=== PATIENT | male | born 1940 | race Caucasian/White ===

== ENCOUNTER 2019-07-05 10:40 | Outpatient (CLI) | payer MEDICARE ==
[2019-07-05 11:04] LABS: BASOPHILS # (AUTO) 0.1 10^3/uL (0.0-0.1); BASOPHILS % (AUTO) 0.7 %; EOSINOPHILS # (AUTO) 0.4 10^3/uL (0.0-0.7); EOSINOPHILS % (AUTO) 5.2 %; HGB - HEMOGLOBIN 15.6 g/dL (14.0-18.0); LYMPHOCYTES # (AUTO) 1.3 10^3/uL (1.5-3.5); LYMPHOCYTES % (AUTO) 15.9 %; MEAN CORPUSCULAR HEMOGLOBIN 31.5 pg (27.0-31.0); MEAN CORPUSCULAR HGB CONC 33.8 g/dL (32.0-36.0); MEAN CORPUSCULAR VOLUME 93.3 fL (80.0-94.0); MEAN PLATELET VOLUME 9.7 fL (7.4-11.4); MONOCYTES # (AUTO) 0.7 10^3/uL (0.0-1.0); NEUTROPHILS # (AUTO) 5.9 10^3/uL (1.5-6.6); NEUTROPHILS % (AUTO) 69.8 %; PLT - PLATELET COUNT 224 10^3/uL (130-450); RED BLOOD COUNT 4.95 10^6/uL (4.70-6.10); RED CELL DISTRIBUTION WIDTH 14.2 % (12.0-15.0); WHITE BLOOD COUNT 8.5 x10^3/uL (4.8-10.8)
[2019-07-05 11:22] LABS: ALBUMIN 4.5 g/dL (3.2-5.5); ALBUMIN/GLOBULIN RATIO 1.3 (1.0-2.2); ALKALINE PHOSPHATASE 66 IU/L (42-121); ALT ALANINE AMINOTRANSFERASE 26 IU/L (10-60); AST ASPARTATE AMINOTRANSFERASE 19 IU/L (10-42); BILIRUBIN,TOTAL 0.9 mg/dL (0.2-1.0); BUN - BLOOD UREA NITROGEN 14 mg/dL (6-20); CALCIUM 8.8 mg/dL (8.5-10.3); CARBON DIOXIDE - CO2 25 mmol/L (21-32); CHLORIDE 100 mmol/L (101-111); CHOL/HDL RATIO 4.6 (<5.0); CHOLESTEROL 160 mg/dL; CREATININE 0.7 mg/dL (0.6-1.2); GLUCOSE 117 mg/dL (70-100); HDL CHOLESTEROL 35 mg/dL; LDL CHOLESTEROL,CALCULATED 69 mg/dL; SODIUM 134 mmol/L (135-145); VLDL CHOLESTEROL 56 mg/dL
[2019-07-05 11:51] LABS: DIFFERENTIAL COMMENT MANUAL=AUTO DIFF; PLATELET ESTIMATE, MANUAL NORMAL (130-450,000) (NORMAL); PLATELET MORPHOLOGY NORMAL APPEARANCE (NORMAL); RBC MORPHOLOGY (MULTIPLE) NORMAL APPEARANCE (NORMAL)
[2019-07-05 12:01] LABS: PSA FREE 1.38 ng/mL (0.16-2.81); PSA TOTAL 4.63 ng/mL (0.000-2.000)
== END 2019-07-05 10:41 | disposition home or self-care (01) ==
LOC: LAB 10:40
PROVIDERS: ATTEND Registered Nurse
DX: R03.0 Elevated blood-pressure reading, without diagnosis of hypertension (principal); N52.9 Male erectile dysfunction, unspecified; E78.5 Hyperlipidemia, unspecified
CPT/HCPCS: 36415; 80053; 80061; 83721; 84153; 84154; 84443; 85025

== ENCOUNTER 2021-02-16 07:51 | Outpatient (CLI) | payer MEDICARE, OTHER ==
[2021-02-16 15:26] LABS: BASOPHILS # (AUTO) 0.1 10^3/uL (0.0-0.1); BASOPHILS % (AUTO) 0.9 %; EOSINOPHILS # (AUTO) 0.5 10^3/uL (0.0-0.7); EOSINOPHILS % (AUTO) 7.1 %; HCT - HEMATOCRIT 38.5 % (42.0-52.0); HGB - HEMOGLOBIN 11.3 g/dL (14.0-18.0); LYMPHOCYTES # (AUTO) 1.7 10^3/uL (1.5-3.5); LYMPHOCYTES % (AUTO) 26.4 %; MEAN CORPUSCULAR HGB CONC 29.4 g/dL (32.0-36.0); MEAN CORPUSCULAR VOLUME 85.2 fL (80.0-94.0); MEAN PLATELET VOLUME 9.7 fL (7.4-11.4); MONOCYTES # (AUTO) 0.6 10^3/uL (0.0-1.0); NEUTROPHILS # (AUTO) 3.6 10^3/uL (1.5-6.6); NEUTROPHILS % (AUTO) 56.3 %; PLT - PLATELET COUNT 300 10^3/uL (130-450); RED BLOOD COUNT 4.52 10^6/uL (4.70-6.10); RED CELL DISTRIBUTION WIDTH 15.4 % (12.0-15.0); WHITE BLOOD COUNT 6.4 x10^3/uL (4.8-10.8)
[2021-02-16 15:44] LABS: ALBUMIN/GLOBULIN RATIO 1.3 (1.0-2.2); ALKALINE PHOSPHATASE 53 IU/L (42-121); ALT ALANINE AMINOTRANSFERASE 18 IU/L (10-60); AST ASPARTATE AMINOTRANSFERASE 19 IU/L (10-42); BILIRUBIN,TOTAL 0.7 mg/dL (0.2-1.0); BUN - BLOOD UREA NITROGEN 13 mg/dL (6-20); CALCIUM 8.8 mg/dL (8.5-10.3); CARBON DIOXIDE - CO2 27 mmol/L (21-32); CHLORIDE 102 mmol/L (101-111); CHOL/HDL RATIO 3.5 (<5.0); CHOLESTEROL 141 mg/dL; CREATININE 0.7 mg/dL (0.6-1.2); GFR - MDRD 109 (>89); GLUCOSE 134 mg/dL (70-100); HDL CHOLESTEROL 40 mg/dL; LDL CHOLESTEROL,CALCULATED 67 mg/dL; LDL/HDL RATIO 1.7 (<3.6); POTASSIUM 3.4 mmol/L (3.5-5.0); SODIUM 136 mmol/L (135-145); TOTAL PROTEIN 7.2 g/dL (6.7-8.2); TRIGLYCERIDES 171 mg/dL; VLDL CHOLESTEROL 34 mg/dL
== END 2021-02-16 07:52 | disposition home or self-care (01) ==
LOC: LAB.S 07:51
PROVIDERS: ATTEND Registered Nurse
DX: Z00.00 Encounter for general adult medical examination without abnormal findings (principal); Z79.899 Other long term (current) drug therapy; E88.81 Metabolic syndrome and other insulin resistance; R03.0 Elevated blood-pressure reading, without diagnosis of hypertension; E78.5 Hyperlipidemia, unspecified
CPT/HCPCS: 36415; 80053; 80061; 83721; 85025

== ENCOUNTER 2021-05-03 07:57 | Day surgery (SDC) | payer MEDICARE, OTHER ==
[2021-05-03] MEDS ORDERED: LACTATED RINGERS 1,000 ML IV ONE ×3 (08:08→13:22)
--- NOTE | 2021-05-03 09:17 | ANESTHESIA ---
Pre-Anesthesia VS, & Labs - Diagnosis screening - Procedure colonoscopy Vital Signs: Temp Pulse Resp BP Pulse Ox 36.6 C 101 H 20 155/93 H 100 05/03/21 08:10 05/03/21 08:10 05/03/21 08:10 05/03/21 08:29 05/03/21 08:10 Height: 5 ft 11 in Weight (kg): 91 kg Body Mass Index: 27.9 BMI Classification: Overweight - NPO >8 hours - Lab Results Current Lab Results: Laboratory Tests 05/03/21 08:22: POC Whole Bld Glucose 127 H Home Medications and Allergies Home Medications: Ambulatory Orders Clopidogrel [Plavix] 75 mg PO DAILY 05/02/21 Simvastatin [Zocor] 20 mg PO DAILY 05/02/21 metFORMIN [Glucophage] 500 mg PO BID 05/02/21 Clopidogrel [Plavix] 75 mg PO DAILY 05/02/21 Simvastatin [Zocor] 20 mg PO DAILY 05/02/21 metFORMIN [Glucophage] 500 mg PO BID 05/02/21 Allergies/Adverse Reactions: Allergies Allergy/AdvReac Type Severity Reaction Status Date / Time No Known Drug Allergies Allergy Verified 05/02/21 12:32 Anes History & Medical History - Anesthetic History Anesthesia Complications: reports: No previous complications Family history of Anesthesia Complications: Denies Family history of Malignant Hyperthermia: Denies - Medical History Cardiovascular: reports: High cholesterol, Deep vein thrombosis Pulmonary: reports: None Gastrointestinal: reports: None Urinary: reports: None Musculoskeletal: reports: None Endocrine/Autoimmune: reports: Type 2 diabetes Skin: reports: None Exam General: Alert, Oriented x3, Cooperative Dental: WNL, Partials Lower Mouth Openin Fingerbreadth Neck Mobility: Normal Mallampati classification: II Thyromental Distance: 4-6 cm Respiratory: Lungs clear Cardiovascular: Regular rate Plan Anesthesia Type: Total IV Consent for Procedure(s) Verified and Reviewed: Yes Code Status: Attempt Resuscitation ASA classification: 2-Mild systemic disease Is this case an emergency?: No
[2021-05-03] MEDS ORDERED: PROPOFOL 500 MG/50 ML 500 MG/50 ML VIAL ONE (09:40)
[2021-05-03] MEDS ORDERED: fentaNYL 100 MCG/2 ML VIAL ONE (09:41)
[2021-05-03] MEDS ORDERED: IOVERSOL 320 100 ML VIAL IVP ONE ×2 (11:36→19:00)
[2021-05-03 11:43] LABS: HCT - HEMATOCRIT 32.4 % (42.0-52.0); HGB - HEMOGLOBIN 9.7 g/dL (14.0-18.0); MEAN CORPUSCULAR HEMOGLOBIN 23.8 pg (27.0-31.0); MEAN CORPUSCULAR HGB CONC 29.9 g/dL (32.0-36.0); MEAN CORPUSCULAR VOLUME 79.4 fL (80.0-94.0); MEAN PLATELET VOLUME 8.8 fL (7.4-11.4); RED BLOOD COUNT 4.08 10^6/uL (4.70-6.10); RED CELL DISTRIBUTION WIDTH 16.3 % (12.0-15.0)
[2021-05-03] MEDS ORDERED: IOPAMIDOL-300 50 ML VIAL ONE (11:45)
[2021-05-03 11:57] LABS: ALBUMIN 3.5 g/dL (3.2-5.5); ALBUMIN/GLOBULIN RATIO 1.2 (1.0-2.2); BILIRUBIN,TOTAL 0.5 mg/dL (0.2-1.0); CALCIUM 8.2 mg/dL (8.5-10.3); CREATININE 0.8 mg/dL (0.6-1.2); POTASSIUM 3.6 mmol/L (3.5-5.0); TOTAL PROTEIN 6.4 g/dL (6.7-8.2)
--- NOTE | 2021-05-03 12:50 | ANESTHESIA POST OP EVALUATION ---
Anesthesia Post Eval - Post Anesthesia Eval Vitals: Last Vital Signs Temp 36.5 C 05/03/21 11:20 Pulse 79 05/03/21 11:32 Resp 14 05/03/21 11:32 BP 109/70 05/03/21 11:32 Pulse Ox 95 05/03/21 11:32 CV Function Including HR & BP: Stable Pain Control: Satisfactory Nausea & Vomiting: Negative Mental Status: Baseline Respiratory Status: Airway Patent Hydration Status: Satisfactory Anesthesia Complications: None
[2021-05-03 14:57] VITALS: BP 138/88
[2021-05-03] MEDS ORDERED: IOPAMIDOL-300 50 ML VIAL PO ONE (19:01)
--- NOTE | 2021-05-03 19:51 | CT Report ---
PROCEDURE: Abdomen/Pelvis W INDICATIONS: rectal cancer TECHNIQUE: After the administration of IV and oral contrast, 5 mm thick sections acquired from the diaphragms to the symphysis. 5 mm thick coronal and sagittal reformats were acquired. For radiation dose reducti on, the following was used: automated exposure control, adjustment of mA and/or kV according to jae ent size. COMPARISON: None. FINDINGS: Image quality: Excellent. ABDOMEN: Lung bases: 8 mm pleural-based nodule is seen in posterior right lung base series 4 image 27. Elevati on of right hemidiaphragm is also seen. No pleural effusion or pneumothorax. Heart size is normal. Solid organs: Liver and spleen are normal in size and enhancement. Gallbladder is within normal gillis its. Biliary system is non dilated. Pancreas enhances normally. No adrenal nodules. Kidneys demon strate normal size and enhancement, without hydronephrosis. Multiple bilateral renal cysts are seen and measures up to 5.3 x 5.1 cm in size in lower pole of left kidney with thin peripheral calcificati ons. Largest cyst on the right side measures up to 5.5 x 5.2 cm in size. 1.5 cm cyst is seen in upper pole of right kidney with peripheral calcification. Peritoneum and bowel: There is no bowel obstruction. No gastric or small bowel wall thickening. Sarah l contrast opacification of ascending colon, transverse colon and descending colon is seen. Mild diff use wall thickening involving distal descending colon and sigmoid colon is seen with mild narrowing o f the lumen. Extensive sigmoid diverticulosis is seen, no pericolonic fat stranding is noted to sugge st acute diverticulitis. There is significant posterior rectal wall thickening involving distal 6.3 c m segment of rectum likely related to patient's known rectal cancer. No abscess collection. No free f luid of free air. Nodes and vessels: No retroperitoneal or mesenteric adenopathy by size criteria. Moderate atheroscle rotic calcifications in abdominal aorta is seen with fusiform infrarenal abdominal aortic aneurysm me asures up to 3.5 cm in largest AP diameter. 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 Miscellaneous: No ventral hernias. PELVIS: Genitourinary: Bladder wall thickness is normal. Enlarged prostate gland with mass effect on floor of urinary bladder is seen. Miscellaneous: No inguinal lymphadenopathy. Bilateral inguinal hernias are seen containing fat only. Bones: No suspicious bony lesions. No vertebral body compression fractures. Osteoarthritic changes throughout bony pelvis is seen. Degenerative disc disease throughout lower thoracic and lumbar spine is seen. IMPRESSION: 1. Asymmetric posterior rectal wall thickening involving distal 6.3 cm segment of rectum likely relat ed to patient's known rectal cancer. 2. No bowel obstruction. Diffuse wall thickening involving distal descending colon and sigmoid colon with extensive colonic diverticulosis suggestive of sequela from prior diverticulitis. No abscess col lection. No free fluid of free air. 3. 8 mm pleural-based solid nodule in posterior right lung base. CT chest follow-up is recommended. E levation of right hemidiaphragm. 4. Fusiform infrarenal abdominal aortic aneurysm measures up to 3.5 cm in largest AP diameter. Aneury smal dilatation of bilateral proximal common iliac artery as above. 5. Bilateral renal cysts as above. No renal stone or hydronephrosis. Reviewed by: Edward Arias MD on 05/03/2021 7:50 PM PST Approved by: Edward Arias MD on 05/03/2021 7:50 PM PST Station ID: [id number]
== END 2021-05-03 07:58 | disposition home or self-care (01) ==
LOC: SDS 07:57
PROVIDERS: ATTEND Surgery
PROC: 0DBP8ZX Excision of Rectum, Via Natural or Artificial Opening Endoscopic, Diagnostic (ICD-10-PCS; 2021-05-03)
PROC: 0DBM8ZZ Excision of Descending Colon, Via Natural or Artificial Opening Endoscopic (ICD-10-PCS; 2021-05-03)
PROC: 0DBK8ZZ Excision of Ascending Colon, Via Natural or Artificial Opening Endoscopic (ICD-10-PCS; principal; 2021-05-03 09:30)
DX: Z12.11 Encounter for screening for malignant neoplasm of colon (principal); C20 Malignant neoplasm of rectum; D12.2 Benign neoplasm of ascending colon; D12.4 Benign neoplasm of descending colon; K57.30 Diverticulosis of large intestine without perforation or abscess without bleeding; E11.9 Type 2 diabetes mellitus without complications; Z79.84 Long term (current) use of oral hypoglycemic drugs; F41.9 Anxiety disorder, unspecified; I71.4 Abdominal aortic aneurysm, without rupture; R91.1 Solitary pulmonary nodule; N28.1 Cyst of kidney, acquired
CPT/HCPCS: 36415; 45380; 74177; 80053; 82378; 85027; J7120; Q9967

== ENCOUNTER 2021-05-23 06:59 | Outpatient (CLI) | payer MEDICARE, OTHER ==
[2021-05-23] MEDS ORDERED: IOVERSOL 320 100 ML VIAL IVP ONE ×2 (07:13→07:30)
--- NOTE | 2021-05-23 08:57 | CT Report ---
PROCEDURE: CHEST W INDICATIONS: RECTAL CA/ CHEST LESION ON ABD CT CONTRAST: IV CONTRAST: Optiray 320 ml: 100 PO CONTRAST: *NO PO CONTRAST TECHNIQUE: After the administration of intravenous contrast, 1 mm axial images were acquired from the pulmonary apices through the posterior costophrenic angles. Axial 5 mm soft tissue kernel reconstructions were performed as well as 8 mm axial MIP and coronal and sagittal 5 mm reformations. For radiation dose reduction, the following was used: automated exposure control, adjustment of mA and/or kV according to patient size. COMPARISON: None. FINDINGS: Image quality: Excellent. Lungs and pleura: Multiple pulmonary nodules are present as follows: 1. There is a 1.0 cm pleural-based nodule with minimal calcification within it at the extreme right l chioma base on image 286/4. It may be a benign lesion. 2. There is a 2 mm pulmonary nodule in the right upper lobe on image 91/4. 3. There is a 1 mm pulmonary nodule in a subpleural location anteriorly in the right lung on image 14 3/4. 4. On image 219/4 is a left lower lobe pulmonary nodule measuring approximately 3 mm immediately deb cent to the left heart border. 5. There is a 2 mm subpleural left lower lobe pulmonary nodule on image 218/4. No acute air space opacities. No pleural effusions or pneumothorax. Central and peripheral airways are patent and normal in caliber. Mediastinum: Heart size is normal. No pericardial effusion. No mediastinal or hilar adenopathy by size criteria. Thoracic aorta and central pulmonary arteries are normal in size. Esophagus is shabbir l in caliber. No hiatal hernia. Bones and chest wall: No suspicious bony lesions. No vertebral body compression fractures. No axil giuseppe or supraclavicular adenopathy by size criteria. 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 Visualized upper abdomi nal solid organs appear normal. Upper abdominal bowel loops are normal in caliber. IMPRESSION: 1. There are multiple pulmonary nodules present. Findings include a 1 cm maximum diameter pleural-bas ed pulmonary nodule, which may potentially be benign. The other nodules are all quite small, and may also potentially be benign. 2. 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 Comment: PET/CT May potentially be helpful to evaluate the presence or absence of increased FDG activ ity in the pleural-based pulmonary nodule. The other nodules can be followed on serial CTs. CLINICAL RECOMMENDATION STATEMENTS: In patients <35 years with an ITN detected on CT, MRI, or extrathyroidal ultrasound, the Committee re commends further evaluation with dedicated thyroid ultrasound if the nodule is "e1 cm and has no susp icious imaging features, and if the patient has normal life expectancy. In patients "e35 years with an ITN detected on CT, MRI, or extrathyroidal ultrasound, the Committee r ecommends further evaluation with dedicated thyroid ultrasound if the nodule is "e1.5 cm and has no s uspicious imaging features, and if the patient has normal life expectancy. (ACR, 2014) Reviewed by: Raimundo Flores MD on 05/23/2021 7:56 AM [facility] Approved by: Raimundo Flores MD on 05/23/2021 7:56 AM [facility] Station ID: [id number]
== END 2021-05-23 07:00 | disposition home or self-care (01) ==
LOC: DI 06:59
PROVIDERS: ATTEND Surgery
DX: C20 Malignant neoplasm of rectum (principal); R91.8 Other nonspecific abnormal finding of lung field
CPT/HCPCS: 71260; Q9967

== ENCOUNTER 2021-07-01 01:01 | Emergency (ER) | payer MEDICARE, OTHER ==
--- NOTE | 2021-07-01 01:30 | ED Physician Documentation ---
PD HPI GI BLEED - Stated complaint Stated Complaint: BLOOD IN STOOL, DIRRHEA - Chief complaint Chief Complaint: Abd Pain - History obtained from History obtained from: Patient - History of Present Illness Timing - onset: How many hours ago (12) Timing - details: Abrupt onset Pain level max: 0 Pain level now: 0 Associated symptoms: BRBPR Similar symptoms before: Has not had sx before - Additional information Additional information: C/o BRBPR , sudden onset approximately 12 hours [employer]ING [employer], with at least 2 more subsequent episodes, some with clots. He says the frequency and amount of blood have both been attenuating. He denies pain, including abdominal pain. Denies n/v, denies dyspnea. He has h/o colorectal CA and takes PO chemotherapy for this. His prescription medications include plavix. Recently had outpatient IV iron transfusion. He says that he has not had blood in stool associated with his colorectal cancer Review of Systems Constitutional: reports: Reviewed and negative Cardiac: reports: Reviewed and negative Respiratory: reports: Reviewed and negative GI: reports: Bloody / black stool. denies: Abdominal Pain, Nausea, Vomiting, Constipation, Diarrhea Neurologic: denies: Generalized weakness PD PAST MEDICAL HISTORY - Past Medical History Cardiovascular: High cholesterol, Deep vein thrombosis Respiratory: None Endocrine/Autoimmune: Type 2 diabetes GI: None : None HEENT: None Psych: None Musculoskeletal: None Derm: None - Present Medications Home Medications: Ambulatory Orders Medication Instructions Recorded Confirmed Clopidogrel [Plavix] 75 mg PO DAILY 05/02/21 07/01/21 Simvastatin [Zocor] 10 mg PO DAILY 05/02/21 07/01/21 metFORMIN [Glucophage] 500 mg PO BID 05/02/21 07/01/21 Aspirin [Vazalore] 81 mg PO DAILY 05/25/21 07/01/21 Capecitabine [Xeloda] 1,650 mg PO BID 05/28/21 07/01/21 Ondansetron Odt [Zofran Odt] 4 mg TL Q6H PRN #30 tab 06/04/21 07/01/21 - Allergies Allergies/Adverse Reactions: Allergies Allergy/AdvReac Type Severity Reaction Status Date / Time No Known Drug Allergies Allergy Verified 07/01/21 01:20 PD ED PE NORMAL - Vitals Vital signs reviewed: Yes - General General: Alert and oriented X 3, No acute distress, Well developed/nourished - HEENT HEENT: Moist mucous membranes - Neck Neck: Supple, no meningeal sign - Cardiac Cardiac: RRR, No murmur - Respiratory Respiratory: No respiratory distress, Clear bilaterally - Abdomen Abdomen: Normal bowel sounds, Soft, Non tender, Non distended - Derm Derm: Normal color, Warm and dry - Neuro Neuro: Alert and oriented X 3 Results - Vitals Vitals: Oxygen O2 Source Room air - EKG (time done) No standard instances Rate: Rate (enter#) (78) Rhythm: NSR [place]: Normal Intervals: Normal [place], Wide QRS (NSIVCD) QRS: Normal Ischemia: Normal ST segments, T wave inversion Computer interpretation: Disagree with computer (no compelling evidence of ST elevation(s) nor depression(s)) - Labs Labs: Laboratory Tests 07/01/21 07/01/21 07/01/21 01:31 01:31 01:31 WBC 5.3 RBC 3.84 L Hgb 9.8 L Hct 31.9 L MCV 83.1 MCH 25.5 L MCHC 30.7 L RDW 24.7 H Plt Count 235 MPV 8.9 Neut # (Auto) 4.2 Lymph # (Auto) 0.6 L [place] # (Auto) 0.5 Eos # (Auto) 0.1 Baso # (Auto) 0.0 Absolute Nucleated RBC 0.00 Nucleated RBC % 0.0 Manual Slide Review Indicated WBC Morphology NORMAL APPEARANCE Platelet Estimate NORMAL (130-450,000) Platelet Morphology NORMAL APPEARANCE RBC Morph Micro Appear 2+ ANISOCYTOSIS PT 13.2 H INR 1.2 Sodium Potassium Chloride Carbon Dioxide Anion Gap BUN Creatinine Estimated GFR (MDRD) Glucose Calcium Total Bilirubin AST ALT Alkaline Phosphatase Total Protein Albumin Globulin Albumin/Globulin Ratio Lipase Blood Type A NEGATIVE Blood Type Recheck Antibody Screen NEGATIVE 07/01/21 07/01/21 07/01/21 01:31 04:00 04:00 WBC RBC Hgb 9.7 L Hct 31.5 L MCV MCH MCHC RDW Plt Count MPV Neut # (Auto) Lymph # (Auto) [place] # (Auto) Eos # (Auto) Baso # (Auto) Absolute Nucleated RBC Nucleated RBC % Manual Slide Review WBC Morphology Platelet Estimate Platelet Morphology RBC Morph Micro Appear PT INR Sodium 138 Potassium 3.7 Chloride 104 Carbon Dioxide 24 Anion Gap 10.0 BUN 12 Creatinine 0.7 Estimated GFR (MDRD) 109 Glucose 144 H Calcium 8.6 Total Bilirubin 0.6 AST 18 ALT 16 Alkaline Phosphatase 68 Total Protein 6.8 Albumin 3.5 Globulin 3.3 Albumin/Globulin Ratio 1.1 Lipase 43 Blood Type Blood Type Recheck A NEGATIVE Antibody Screen PD MEDICAL DECISION MAKING - ED course Complexity details: reviewed old records, reviewed results, re-evaluated patient, considered differential, d/w patient, d/w family ED course: NAD and denies any new symptoms aside from BRBPR. He says the frequency and amou nt of bleeding has attenuated since onset 12 hours [employer]. His H/H is stable compared to previous: marcellus hemoglobin is 9.8, with results of 10.7 (06/29), 9.8 (06/15), 9/8 (06/08), and 9.7 (05/03) He underwent outpatient IV iron transfusion 06/13, which might account for the transient increase in hgb noted on the 06/29 draw. He is held in ED for a two-hour repeat h/h, with no significant change (9.7 hgb). Vital signs are stable and non tender on abdominal exam. Results reviewed with patient, would benefit from close follow up but does not need admission to hospital nor further observation/testing in ED at this time. Return precautions discussed. Departure - Departure Disposition: 01 Home, Self Care Clinical Impression: Lower gastrointestinal bleeding Condition: Good Instructions: ED Hematochezia Stable Follow-Up: TONI GONSALVES MD [Primary Care Provider] - Comments: Levi's blood tests are reassuring. Of particular interest in this situation is, of course, your red blood cell levels. Your hemoglobin tonight was 9.8, and a 2-hour repeat level was nearly the same (9.7), so an ongoing, rapid amount of bleeding is unlikely at this time. I would have you continue with your medications, return if the bleeding increases or if you develop any other concerning signs/symptoms (such as shortness of breath, lightheadedness, abdominal/back pain, fever), and contact your primary care provider Friday to arrange for next available follow up. Discharge Date/Time: 07/01/21 04:57
[2021-07-01 01:42] LABS: BASOPHILS % (AUTO) 0.4 %; EOSINOPHILS # (AUTO) 0.1 10^3/uL (0.0-0.7); EOSINOPHILS % (AUTO) 2.2 %; HCT - HEMATOCRIT 31.9 % (42.0-52.0); HGB - HEMOGLOBIN 9.8 g/dL (14.0-18.0); LYMPHOCYTES # (AUTO) 0.6 10^3/uL (1.5-3.5); LYMPHOCYTES % (AUTO) 10.5 %; MEAN CORPUSCULAR HEMOGLOBIN 25.5 pg (27.0-31.0); MEAN CORPUSCULAR HGB CONC 30.7 g/dL (32.0-36.0); MEAN CORPUSCULAR VOLUME 83.1 fL (80.0-94.0); MEAN PLATELET VOLUME 8.9 fL (7.4-11.4); MONOCYTES # (AUTO) 0.5 10^3/uL (0.0-1.0); MONOCYTES % (AUTO) 8.4 %; NEUTROPHILS # (AUTO) 4.2 10^3/uL (1.5-6.6); NEUTROPHILS % (AUTO) 78.1 %; PLT - PLATELET COUNT 235 10^3/uL (130-450); RED BLOOD COUNT 3.84 10^6/uL (4.70-6.10); RED CELL DISTRIBUTION WIDTH 24.7 % (12.0-15.0); WHITE BLOOD COUNT 5.3 x10^3/uL (4.8-10.8)
[2021-07-01 01:43] LABS: SLIDE REVIEW? Indicated
[2021-07-01 01:46] LABS: INR 1.2 (0.8-1.2); PT - PROTHROMBIN TIME 13.2 secs (9.9-12.6)
[2021-07-01 01:55] LABS: ALBUMIN 3.5 g/dL (3.2-5.5); ALBUMIN/GLOBULIN RATIO 1.1 (1.0-2.2); BILIRUBIN,TOTAL 0.6 mg/dL (0.2-1.0); CALCIUM 8.6 mg/dL (8.5-10.3); CREATININE 0.7 mg/dL (0.6-1.2); POTASSIUM 3.7 mmol/L (3.5-5.0); TOTAL PROTEIN 6.8 g/dL (6.7-8.2)
[2021-07-01 01:58] LABS: PLATELET ESTIMATE, MANUAL NORMAL (130-450,000) (NORMAL); PLATELET MORPHOLOGY NORMAL APPEARANCE (NORMAL); RBC MORPHOLOGY (MULTIPLE) 2+ ANISOCYTOSIS (NORMAL); WBC MORPHOLOGY (MULTIPLE) NORMAL APPEARANCE (NORMAL)
[2021-07-01 04:06] LABS: HCT - HEMATOCRIT 31.5 % (42.0-52.0); HGB - HEMOGLOBIN 9.7 g/dL (14.0-18.0)
[2021-07-01 04:36] VITALS: BP 111/71
== END 2021-07-01 04:57 | disposition home or self-care (01) ==
LOC: ED 01:01
DX: K92.2 Gastrointestinal hemorrhage, unspecified (principal); E11.9 Type 2 diabetes mellitus without complications; Z79.84 Long term (current) use of oral hypoglycemic drugs
CPT/HCPCS: 36415; 80053; 83690; 85014; 85018; 85025; 85610; 86850; 86900; 86901; 93005; 99282; 99283

== ENCOUNTER 2022-10-31 12:06 | Day surgery (SDC) | payer MEDICARE, OTHER ==
[2022-10-31] MEDS ORDERED: ceFAZolin 2 GM VIAL ONE (12:25)
[2022-10-31] MEDS ORDERED: LACTATED RINGERS 1,000 ML IV ONE ×2 (12:47→15:31)
[2022-10-31] MEDS ORDERED: LIDOCAINE 1%-EPI 1:100000 20 ML MDV ONE (13:29)
[2022-10-31] MEDS ORDERED: BUPIVACAINE 0.25% PF 30 ML VIAL ONE (13:30)
--- NOTE | 2022-10-31 14:19 | ANESTHESIA ---
Pre-Anesthesia VS, & Labs - Diagnosis COLON CA - Procedure PORTACATH Height: 5 ft 11 in Weight (kg): 89.6 kg Body Mass Index: 27.5 BMI Classification: Overweight - NPO >8 hours - Lab Results Lab results reviewed: Yes Home Medications and Allergies Clopidogrel [Plavix] 75 mg PO DAILY 05/02/21 Simvastatin [Zocor] 10 mg PO DAILY 05/02/21 Aspirin [Vazalore] 81 mg PO DAILY 05/25/21 Allergies/Adverse Reactions: Allergies Allergy/AdvReac Type Severity Reaction Status Date / Time No Known Drug Allergies Allergy Verified 08/31/21 09:09 Anes History & Medical History - Anesthetic History Anesthesia Complications: reports: No previous complications Family history of Anesthesia Complications: Denies Family history of Malignant Hyperthermia: Denies - Medical History Cardiovascular: reports: High cholesterol, Peripheral Vascular Disease, Arrhythmia, Other Pulmonary: reports: None Gastrointestinal: reports: None Urinary: reports: None Musculoskeletal: reports: None Endocrine/Autoimmune: reports: Type 2 diabetes Skin: reports: None Smoking Status: Never smoker - Surgical History General: reports: Colonoscopy Eyes Ears Nose Throat (EENT): reports: Tonsil/Adenoidectomy Cardiothoracic: reports: Other Exam General: Alert, Oriented x3, Cooperative Dental: Loose/Frag (UPPER LEFT MOLAR), Poor dentition Mouth Openin Fingerbreadth Neck Mobility: Normal Mallampati classification: I Thyromental Distance: 4-6 cm Respiratory: Lungs clear Plan Anesthesia Type: General, MAC Consent for Procedure(s) Verified and Reviewed: Yes Code Status: Attempt Resuscitation ASA classification: 3-Severe systemic disease Is this case an emergency?: No
[2022-10-31] MEDS ORDERED: ePHEDrine 50 MG/ML VIAL IVP PRN (14:20)
[2022-10-31] MEDS ORDERED: ONDANSETRON 4 MG/2 ML VIAL IVP PRN (14:20)
[2022-10-31] MEDS ORDERED: NALOXONE 0.4 MG/ML VIAL IVP PRN (14:20)
[2022-10-31] MEDS ORDERED: fentaNYL 100 MCG/2 ML VIAL IVP PRN (14:20)
[2022-10-31] MEDS ORDERED: HYDROmorphone 0.5 MG/0.5 ML SYRINGE IVP PRN (14:20)
[2022-10-31] MEDS ORDERED: ATROPINE ABBOJECT 1 MG/10 ML SYRINGE IVP PRN (14:20)
[2022-10-31] MEDS ORDERED: fentaNYL 100 MCG/2 ML VIAL ONE (14:46)
[2022-10-31] MEDS ORDERED: LACTATED RINGERS 1,000 ML IV SCH (15:00)
[2022-10-31] MEDS ORDERED: BUPIVACAINE 0.25% PF 30 ML VIAL SUBQ ONE ×2 (15:04)
[2022-10-31] MEDS ORDERED: SODIUM CHLORIDE 0.9% 100 ML BAG IV ONE (15:04)
[2022-10-31] MEDS ORDERED: PROPOFOL 200 MG/20 ML VIAL IVP ONE (15:05)
[2022-10-31] MEDS ORDERED: LIDOCAINE MPF 2%-EPI 1:200000 20 ML VIAL SUBQ ONE ×2 (15:05)
[2022-10-31] MEDS ORDERED: PROPOFOL 500 MG/50 ML 500 MG/50 ML VIAL ONE (15:17)
[2022-10-31] MEDS ORDERED: oxyCODONE 5 MG TABLET PO PRN (15:39)
--- NOTE | 2022-10-31 15:47 | OPERATIVE REPORT ---
Operative Report - General Procedure Date: 10/31/22 Planned Procedure: left subclavian power port placement Pre-Op Diagnosis: colon cancer Procedure Performed: left subclavian power port placement fluoroscopic guidance Post Op Diagnosis: same - Procedure Note Anesthesia Technique: Local, MAC Pathology: none Estimated Blood Loss (mL): 2 Drain/Tube Type: Other (none) Indications: need for chemotherapy Findings: tip at jxn svc and right atrium. good flush and flow Complications: none - Other Other Information/Narrative: The patient was properly identified brought to the operating room and placed in supine position. Monitored anesthesia care was given as well as IV sedation. A towel roll was placed under the upper back. The patient was prepped and draped in a sterile fashion and given preoperative antibiotics. Local anesthetic was given. The left subclavian vein was easily accessed first pass with a needle. Guide wire placed and position confirmed. A subcutaneous pocket on the left upper chest was created measuring approximately 2-1/2 cm. Portacatheter tubing was then placed subcutaneous up to the venous access point. The portacatheter tubing was then easily placed with the use of a dilator peel-away sheath. The tubing was aspirated and flushed with saline. Under fluoroscopic guidance the tubing was pulled back to the junction of the atrium and the superior vena cava. The portacatheter aspirated and flushed easily assuring good position. The portacatheter was then cut to size and further assembled. The port was secured to subcutaneous tissue with 2 interrupted 4-0 Prolene sutures. The port again was aspirated and flushed now with heparin. Buried interrupted subdermal 3-0 Vicryl sutures were then placed. Skin was closed with buried interrupted and running 4-0 Monocryl subcuticular suture. Dressing was applied. The patient tolerated the procedure well was awakened and brought to recovery in good condition.
[2022-10-31 16:10] VITALS: BP 137/85; O2SAT 99
--- NOTE | 2022-10-31 16:11 | ANESTHESIA POST OP EVALUATION ---
Anesthesia Post Eval - Post Anesthesia Eval Vitals: Last Vital Signs Temp 36.6 C 10/31/22 16:05 Pulse 78 10/31/22 16:05 Resp 16 10/31/22 16:05 BP 137/85 H 10/31/22 16:05 Pulse Ox 99 10/31/22 16:05 O2 Flow Rate CV Function Including HR & BP: Stable Pain Control: Satisfactory Nausea & Vomiting: Negative Mental Status: Baseline Respiratory Status: Airway Patent Hydration Status: Satisfactory Anesthesia Complications: None
--- NOTE | 2022-10-31 16:14 | XRAY Report ---
PROCEDURE: OR Port-A-Cath INDICATIONS: Port-a-cath FLUORO TIME: 0.7 TECHNIQUE: Real time fluoroscopy was performed of the thorax. COMPARISON: CT chest 09/30/2022. FINDINGS: Fluoroscopy was utilized for intraoperative guidance. A single fluoroscopic image of the right lower chest is seen with a partially visualized catheter projecting over the right mediastinum. IMPRESSION: Fluoroscopic guidance was provided intraoperatively for Port-A-Cath placement performed by [facility] [place]. Reviewed by: Jorge Brooks MD on 10/31/2022 4:13 PM PDT Approved by: Jorge Brooks MD on 10/31/2022 4:13 PM PDT Station ID: [id number]
== END 2022-10-31 12:07 | disposition home or self-care (01) ==
LOC: SDS 12:06
PROVIDERS: ATTEND Surgery
DX: C20 Malignant neoplasm of rectum (principal); Z92.21 Personal history of antineoplastic chemotherapy; Z92.3 Personal history of irradiation
CPT/HCPCS: 36561; C1788; J7120

== ENCOUNTER 2023-06-06 08:00 | Outpatient (CLI) | payer MEDICARE, OTHER | END 2023-06-06 23:59 | disposition home or self-care (01) | LOC: PC 08:00 | PROVIDERS: ATTEND Nurse Practitioner Gerontology | DX: Z51.5 Encounter for palliative care (principal); C19 Malignant neoplasm of rectosigmoid junction; C78.01 Secondary malignant neoplasm of right lung; C78.7 Secondary malignant neoplasm of liver and intrahepatic bile duct; Z79.899 Other long term (current) drug therapy; F41.9 Anxiety disorder, unspecified; Z71.89 Other specified counseling | CPT/HCPCS: 99350 ==

== ENCOUNTER 2023-07-01 14:00 | Outpatient (CLI) | payer MEDICARE, OTHER | END 2023-07-01 23:59 | disposition home or self-care (01) | LOC: PC 14:00 | PROVIDERS: ATTEND Nurse Practitioner Gerontology | DX: Z51.5 Encounter for palliative care (principal); C19 Malignant neoplasm of rectosigmoid junction; C78.01 Secondary malignant neoplasm of right lung; C78.7 Secondary malignant neoplasm of liver and intrahepatic bile duct; F41.9 Anxiety disorder, unspecified; Z79.899 Other long term (current) drug therapy | CPT/HCPCS: 99349 ==

== ENCOUNTER 2023-07-31 08:00 | Outpatient (CLI) | payer MEDICARE, OTHER | END 2023-07-31 23:59 | disposition home or self-care (01) | LOC: PC 08:00 | PROVIDERS: ATTEND Nurse Practitioner Gerontology | DX: Z51.5 Encounter for palliative care (principal); C19 Malignant neoplasm of rectosigmoid junction; C78.00 Secondary malignant neoplasm of unspecified lung; C78.7 Secondary malignant neoplasm of liver and intrahepatic bile duct; Z79.899 Other long term (current) drug therapy; R97.0 Elevated carcinoembryonic antigen [CEA]; F41.9 Anxiety disorder, unspecified; R11.0 Nausea; Z79.84 Long term (current) use of oral hypoglycemic drugs; Z79.82 Long term (current) use of aspirin; Z79.02 Long term (current) use of antithrombotics/antiplatelets | CPT/HCPCS: 99350 ==

== ENCOUNTER 2023-10-07 08:00 | Outpatient (CLI) | payer MEDICARE, OTHER | END 2023-10-07 23:59 | disposition home or self-care (01) | LOC: PC 08:00 | PROVIDERS: ATTEND Nurse Practitioner Adult Health | DX: Z51.5 Encounter for palliative care (principal); C20 Malignant neoplasm of rectum; C78.7 Secondary malignant neoplasm of liver and intrahepatic bile duct; F41.9 Anxiety disorder, unspecified | CPT/HCPCS: 99350 ==